=== PATIENT | female | born 1990 | race Two or more races ===

== ENCOUNTER 2022-07-01 05:11 | Inpatient (IN) | payer OTHER ==
[~2022-07-01] VITALS: Ht 162.6 cm; Wt 3.2 kg
[2022-07-01] MEDS ORDERED: PRENATAL TABLE1 EAC1 (07:19)
[2022-07-01] MEDS ORDERED: ADULT LOW DOSE81 M1 PO (07:19)
[2022-07-01] MEDS ORDERED: IRON236 MG PO (07:19)
[2022-07-01] MEDS ORDERED: INTEGRA PLUS C1 EACH (09:07)
== END 2022-07-03 14:12 | disposition home or self-care (01) | DRG 788 ==
LOC: LDR 05:11 → O/R 20:19 → OB/GYN 22:38
PROVIDERS: ADMIT Specialist; ATTEND Specialist
PROC: 4A1HXCZ Monitoring of Products of Conception, Cardiac Rate, External Approach (ICD-10-PCS; 2022-07-01)
PROC: 10D00Z1 Extraction of Products of Conception, Low, Open Approach (ICD-10-PCS; principal; 2022-07-01 20:30)
DX: O62.1 Secondary uterine inertia (principal); Z3A.39 39 weeks gestation of pregnancy; Z37.0 Single live birth; Z20.822 Contact with and (suspected) exposure to COVID-19